=== PATIENT | male | born 1955 | race Caucasian/White ===

== ENCOUNTER 2016-09-19 22:11 | Inpatient (IN) ==
[2016-09-19] MEDS ORDERED: SODIUM CHLORIDE 0.9% 500 ML IV STA (22:55)
[2016-09-19] MEDS ORDERED: methylPREDNISolone SOD SUC 125 MG/2 ML VIAL IV STA (22:55)
[2016-09-19] MEDS ORDERED: ALBUTEROL 2.5 MG/3 ML NEB RESP TX STA (22:55)
[2016-09-19] MEDS ORDERED: cefTRIAXone 1,000 MG in SODIUM CHLORIDE 0.9% 100 ML IV STA (22:55)
[2016-09-19 23:06] LABS: Basophils % 0.1 % (0.0-0.8); Eosinophils # 0.1 10*3/uL (0.0-0.87); Eosinophils % 0.5 % (0.00-10.9); Hematocrit 37.5 VOL% (42.0-52.0); Hemoglobin 12.2 GM/DL (14.0-18.0); Immature Granulocytes % 0.7 %; Lymphocytes # 1.8 10*3/uL (1.4-4.0); Lymphocytes % 11.8 % (21.2-54.2); Mean Corpuscular HGB Conc 32.5 GM/DL (32-36); Mean Corpuscular Hemoglobin 29 PG (27-34); Mean Corpuscular Volume 89.9 FL (87-102); Mean Platelet Volume 11.6 FL (9.6-12.0); Monocytes # 0.8 10*3/uL (0.11-0.8); Monocytes % 5.3 % (1.7-12.7); NRBC # 0.02 10*3/uL; Neutrophils # 12.4 10*3/uL (1.4-7.4); Neutrophils % 81.6 % (38.7-73.9); Platelet Count 271 T/CUMM (130-400); Red Blood Count 4.17 MC/CUMM (3.8-5.5); Red Cell Distribution Width 15.4 % (9.3-17.3); White Blood Count 15.2 T/CUMM (4-12)
--- NOTE | 2016-09-19 23:06 | Emergency Department Note ---
Oneyda Hill Hilary, am scribing for, and in the presence of, Nicholas Palafox MD 22:55. Javy Hill Robert M, MD, personally performed the services described in this documentation, ascribed by Hannah Call in my presence, and it is both accurate and complete . Arrival - Arrival Chief Complaint: Shortness of Breath Stated Complaint: hard time breathing/ ED Nursing Triage Note: pt to triage via wheelchair with c/o not being able to breath. Hx of copd Mode of Arrival: Wheelchair Limitations: No Limitations Source: Patient, RN Notes Reviewed - History of Present Illness HPI Narrative: Pt is a 61 y/o white male presenting to the ED with c/o SOB which onset about a week and a half ago. Pt reports trouble breathing, coughing up green phlegm, highest 103 fever, pain when breathing and throat pain. No other complaints or problems stated in the ED. Onset (ago): week(s) Consistency: constant Severity: moderate Severity scale (1-10): 2 Allergies/Adverse Reactions: Allergies Allergy/AdvReac Type Severity Reaction Status Date / Time fentanyl Allergy Severe Seizure Verified 09/19/16 22:22 Home Medications: Home Medications Medication Instructions Recorded Confirmed Type Albuterol Sulfate [Proair HFA] 2 puff INH Q6H PRN 01/05/15 04/03/16 History Alendronate [Fosamax] 70 mg PO SA 01/05/15 04/03/16 History Amitriptyline HCl 25 mg PO BEDTIME 01/05/15 04/03/16 History Aspirin [Ecotrin] 81 mg PO BEDTIME 01/05/15 04/03/16 History Carbidopa/Levodopa 25-100 [Sinemet 1 tablet PO TID 01/05/15 04/03/16 History 25-100] Carvedilol [Coreg] 6.25 mg PO BID W/MEALS 01/05/15 04/03/16 History Citalopram [CeleXA] 40 mg PO BEDTIME 01/05/15 04/03/16 History Clobetasol Propionate [Clobetasol 1 applic TOP BID PRN 01/05/15 04/03/16 History 0.05% Oint] Meloxicam [Mobic] 7.5 mg PO DAILY 01/05/15 04/03/16 History Morphine Sulfate [Morphine Sulfate 15 mg PO BID 01/05/15 04/03/16 History ER] Nitroglycerin Sl Tab [Nitrostat] 0.4 mg SL Q5M PRN 01/05/15 04/03/16 History Oxycodone HCl/Acetaminophen 1 each PO QID PRN 01/05/15 04/03/16 History [Percocet 10-325 mg Tablet] Potassium Chloride Cap/Tab [K Dur] 10 meq PO DAILY 01/05/15 04/03/16 History Pregabalin [Lyrica] 150 mg PO BID 01/05/15 04/03/16 History Tiotropium [place] [Spiriva 2 puffs INH DAILY 01/05/15 04/03/16 History Respimat] Zolpidem Tartrate [Ambien] 10 mg PO BEDTIME PRN 01/05/15 04/03/16 History clonazePAM [Klonopin] 1 mg PO TID 01/05/15 04/03/16 History Dorzolamide HCl [Dorzolamide 2% 1 drop BOTH EYES BID 01/08/15 04/03/16 History Oph Soln] Latanoprost [Latanoprost 0.005 % 1 drop BOTH EYES BEDTIME 01/08/15 04/03/16 History Oph Soln] cycloSPORINE OPH EMUL [Restasis] 1 drop BOTH EYES Q12HR 01/08/15 04/03/16 History Cyclobenzaprine [Flexeril] 10 mg PO TID 05/21/15 04/03/16 History Topiramate 100 mg PO BID 07/13/15 04/03/16 History tiZANidine [Zanaflex] 4 mg PO TID 07/13/15 04/03/16 History Folic Acid Tab 1 mg PO BEDTIME 04/03/16 04/03/16 History Review of System - Review of System 12 point system: reviewed and no additional remarkable complaints except as stated - Review of System Constitutional: Present: fever Head/Ears/Nose/Throat: Present: sore throat Respiratory: Present: cough, respiratory distress (SOB), wheezing Cardiovascular: Present: dyspnea on exertion Medical,Surgical,& Family Hx - Medical History Cardio: History of: CHF, CAD, Hypertension, OR, Cardiovascular Problems (cabg 2009) Psychological: History of: Anxiety Disorders, Depression, Psychiatric Problems ( CONFUSION UNKNOWN ETIOLOGY) Neurology: History of: Migraine, Seizures (after overdose on fentanyl patches), Vertigo HEENT: History of: Eye Problem (2 eye surgeries - rt), HEENT Problems (HX DETACHED RETINA,LENS IMPLANT BOTH TO RIGHT EYE) Endocrine: History of: Dyslipidemia No history of: Thyroid Disorder Respiratory: History of: COPD, Pneumonia, Respiratory Problems (collasped rt lung from fall) Genitourinary: History of: Bladder Problem (stress incontinence) Gastrointestinal: History of: GERD, Hemorrhoids Musculoskeletal: History of: Back/Neck Problems (3 back surgeries and 2 neck surgeries), Degenerative Disk Disease, Musculoskeletal Problems - Surgical History Cardiac Surgeries: Sugical HX of: Cardiac Catheterization (most recent in 2012 with grafts patent), Cardiac Surgery (2009 with MARTINEZ to LAD and SVG to circumflex) HEENT Surgeries: Surgical HX of: Eye Surgery Patient denies: Tonsilectomy & Adenoidectomy Abdominal Surgeries: Surgical HX of: EGD Orthopedic Surgeries: Surgical HX of;: Implanted Devices (RODS PLACED IN BACK), Orthopedic Surgery (BACK SURG) - Family History Family History: Reports;: Family Cancer (UNCLE), Family Diabetes (AUNT), Family Heart Disease (mother and father), Family Hypertension Denies;: Family Anesthesia Reaction, Family Psychiatric Problems, Family Stroke - Social History Smoking Status: Former smoker Frequency of Alcohol Use: None Type of Drug Use: None Exam Vital Signs: Vital Signs Temperature 97.5 F L 09/19/16 22:14 Pulse Rate 69 09/19/16 23:28 Respiratory Rate 20 09/19/16 23:28 Blood Pressure 146/101 09/19/16 22:48 O2 Sat by Pulse Oximetry 99 09/19/16 23:28 - General General appearance: alert, in no apparent distress - Head Head exam: Present: atraumatic, normocephalic - Eye Eye exam: Present: normal appearance, PERRL, EOMI - ENT ENT exam: Present: mucous membranes moist, TM's normal bilaterally. Absent: mucous membranes dry - Neck Neck exam: Present: full ROM, trachea midline. Absent: tenderness - Chest Chest inspection: Present: symmetric chest wall rise, tenderness (chest wall tenderness anteriorly) - Respiratory Respiratory exam: Present: normal lung sounds bilaterally. Absent: respiratory distress - Cardiovascular Cardiovascular exam: Present: regular rate, normal rhythm, normal heart sounds. Absent: murmur, rubs, gallop - Abdominal Exam Abdominal exam: Present: soft, normal bowel sounds. Absent: distention, tenderness - Extremities Exam Extremities exam: Present: full ROM. Absent: tenderness - Back Exam Back exam: Present: full ROM. Absent: tenderness - Neurological Exam Neurological exam: Present: alert, oriented X3, CN II-XII intact - Psychiatric Psychiatric exam: Present: normal affect, normal mood - Skin Skin exam: Present: warm, dry, intact, normal color. Absent: rash Course - Consultations Consultation #1: Dr. Eleonora Saunders will admit the patient to Dr. Paul. Time: 23:57 Results - Labs CBC & BMP: 09/19/16 22:46 09/19/16 22:46 Lab Results: I have reviewed the patients labs Labs: Lab Results WBC 15.2 T/CUMM (4-12) H 09/19/16 22:46 RBC 4.17 MC/CUMM (3.8-5.5) 09/19/16 22:46 Hgb 12.2 GM/DL (14.0-18.0) L 09/19/16 22:46 Hct 37.5 VOL% (42.0-52.0) L 09/19/16 22:46 MCV 89.9 FL (87-102) 09/19/16 22:46 MCH 29 PG (27-34) 09/19/16 22:46 MCHC 32.5 GM/DL (32-36) 09/19/16 22:46 RDW 15.4 % (9.3-17.3) 09/19/16 22:46 Plt Count 271 T/CUMM (130-400) 09/19/16 22:46 MPV 11.6 FL (9.6-12.0) 09/19/16 22:46 Neut % (Auto) 81.6 % (38.7-73.9) H 09/19/16 22:46 Lymph % (Auto) 11.8 % (21.2-54.2) L 09/19/16 22:46 [place] % (Auto) 5.3 % (1.7-12.7) 09/19/16 22:46 Eos % (Auto) 0.5 % (0.00-10.9) 09/19/16 22:46 Baso % (Auto) 0.1 % (0.0-0.8) 09/19/16 22:46 Neut # (Auto) 12.4 10*3/uL (1.4-7.4) H 09/19/16 22:46 Lymph # (Auto) 1.8 10*3/uL (1.4-4.0) 09/19/16 22:46 [place] # (Auto) 0.8 10*3/uL (0.11-0.8) 09/19/16 22:46 Eos # (Auto) 0.1 10*3/uL (0.0-0.87) 09/19/16 22:46 Baso # (Auto) 0.0 10*3/uL (0.0-0.2) 09/19/16 22:46 Total Counted 100 09/19/16 22:46 Immature Gran % 0.7 % 09/19/16 22:46 Nucleated RBC % 0.1 /100WBC 09/19/16 22:46 Immature Gran # 0.10 # 09/19/16 22:46 Segmented Neutrophils 87 % (50-85) H 09/19/16 22:46 Band Neutrophils 3 % (0-10) 09/19/16 22:46 Lymphocytes 8 % (20-55) L 09/19/16 22:46 Monocytes 2 % (2-15) 09/19/16 22:46 Nucleated RBCs # 0.02 10*3/uL 09/19/16 22:46 Platelet Estimate Adequate 09/19/16 22:46 Polychromasia Slight 09/19/16 22:46 Morphology Comment 09/19/16 22:46 INR 1.1 09/19/16 22:46 PT Patient/Control Mix 11.2 SECS 09/19/16 22:46 Sodium 136 MMOL/L (136-145) 09/19/16 22:46 Potassium 3.6 MMOL/L (3.5-5.1) 09/19/16 22:46 Chloride 100 MMOL/L (98-107) 09/19/16 22:46 Carbon Dioxide 24 MMOL/L (21-32) 09/19/16 22:46 Anion Gap 15.6 MMOL/L (5.0-15.0) H 09/19/16 22:46 BUN 36 MG/DL (7-18) H 09/19/16 22:46 Creatinine 2.20 MG/DL (0.70-1.30) H 09/19/16 22:46 GFR Calculation 40 ML/MIN 09/19/16 22:46 BUN/Creatinine Ratio 16.00 RATIO (6.00-20.00) 09/19/16 22:46 Glucose 82 MG/DL (74-106) 09/19/16 22:46 Calculated Osmolality 278.0 MOS/KG (273-304) 09/19/16 22:46 Calcium 8.3 MG/DL (8.5-10.1) L 09/19/16 22:46 Total Bilirubin 0.40 MG/DL (0.2-1.0) 09/19/16 22:46 AST 16 U/L (0-37) 09/19/16 22:46 ALT < 6 U/L (16-61) L 09/19/16 22:46 Alkaline Phosphatase 83 U/L (45-117) 09/19/16 22:46 Total Protein 7.1 G/DL (6.4-8.3) 09/19/16 22:46 Albumin 2.7 G/DL (3.4-5.0) L 09/19/16 22:46 Globulin 4.4 G/DL (2.3-3.5) H 09/19/16 22:46 Albumin/Globulin Ratio 0.6 RATIO (1.1-2.2) L 09/19/16 22:46 - Diagnostic Findings Procedure: Chest x-ray: image reviewed by me (Right upper lobe reticular nodular appearance suggesting pneumonia with trace amount of fluid in the minor fissure. Trace amount of lingular airspace disease not excluded) Disposition Clinical Impression: Right upper lobe pneumonia, COPD (chronic obstructive pulmonary disease), Hypertension Case discussed with: patient, patient's family Disposition: Still a Patient Condition: Stable Time of Disposition: 23:57
[2016-09-19 23:15] LABS: INR 1.1; PT Patient Result 11.2 SECS
[2016-09-19] MEDS ORDERED: cefTRIAXone 1,000 MG VIAL ONE (23:22)
[2016-09-19] MEDS ORDERED: methylPREDNISolone SOD SUC 125 MG/2 ML VIAL ONE (23:22)
[2016-09-19 23:27] LABS: Alanine Aminotransferase < 6 U/L (16-61); Albumin 2.7 G/DL (3.4-5.0); Alkaline Phosphatase 83 U/L (45-117); Aspartate Amino Transferase 16 U/L (0-37); Blood Urea Nitrogen 36 MG/DL (7-18); Calcium 8.3 MG/DL (8.5-10.1); Glucose 82 MG/DL (74-106); Potassium 3.6 MMOL/L (3.5-5.1); Sodium 136 MMOL/L (136-145); Total Protein 7.1 G/DL (6.4-8.3)
[2016-09-19 23:42] LABS: Band Neutrophils 3 % (0-10); Lymphocytes 8 % (20-55); Segmented Neutrophils 87 % (50-85); Total Cells Counted 100
[2016-09-19 23:43] LABS: Platelet Estimate Adequate
[2016-09-19 23:45] LABS: Polychromasia Slight
[2016-09-19] MEDS ORDERED: ONDANSETRON 4 MG/2 ML VIAL IV PRN (23:58)
[2016-09-19] MEDS ORDERED: ACETAMINOPHEN 325 MG TABLET PO PRN (23:58)
[2016-09-19] MEDS ORDERED: traMADol 50 MG TABLET PO PRN (23:58)
[2016-09-20] MEDS ORDERED: ALBUTEROL/IPRATROPIUM 3 ML NEB RESP TX PRN (00:01)
[2016-09-20] MEDS ORDERED: SODIUM CHLORIDE 0.9% 500 ML IV STA (00:20)
[2016-09-20] MEDS: AZITHROMYCIN INJ 500 MG in SODIUM CHLORIDE 0.9% 250 ML IV SCH (04:52)
--- NOTE | 2016-09-20 06:35 | XRay Report ---
Portable chest Date: 09/19/2016 Clinical history: Shortness of breath Comparison: 04/06/2016 Technique: Portable AP sitting chest Findings: The heart is larger in size with prior median sternotomy. Pulmonary vasculature/steven are more prominent with progressive diffuse parenchymal findings. The findings are most pronounced in the right upper to midlung zone with ill-defined densities. Possible acute fractures of the right seventh and eighth ribs laterally. Underlying bullous emphysema with no definite pneumothorax. Degenerative changes with prior anterior cervical fusion. Impression: Prior median sternotomy with progressive cardiomegaly and parenchymal pathology which may be related pulmonary edema/infiltration. However there are ill-defined densities in the right upper midlung zone with adjacent possible acute fractures of the right seventh and eighth ribs laterally. Underlying bullous emphysema with more prominent pulmonary vasculature/steven. Follow-up chest x-ray is recommended to document clearing and exclude additional underlying pathology/mass. PROCEDURE INTERPRETED AT [facility] DEPARTMENT OF RADIOLOGY Final Report Signed by: Dr. Betsey Oleary
[2016-09-20] MEDS ORDERED: NITROGLYCERIN SL 0.4 MG TABLET SL PRN (08:20)
[2016-09-20] MEDS ORDERED: CYCLOBENZAPRINE 10 MG TABLET PO PRN (08:20)
[2016-09-20] MEDS ORDERED: ALBUTEROL/IPRATROPIUM 3 ML NEB RESP TX SCH (09:00)
[2016-09-20] MEDS ORDERED: IPRATROPIUM 500 MCG/2.5 ML NEB RESP TX SCH (09:00)
[2016-09-20] MEDS: ENOXAPARIN 40 MG/0.4 ML SYRINGE SUBCUT SCH (09:09)
[2016-09-20] MEDS: cycloSPORINE OPH EMUL 1 VIAL BOTH EYES SCH ×2 (09:10→21:10)
[2016-09-20] MEDS: POTASSIUM CHLORIDE 10 MEQ TABLET PO SCH (09:10)
[2016-09-20] MEDS: TOPIRAMATE 100 MG TABLET PO SCH ×2 (09:10→21:09)
[2016-09-20] MEDS: DOCUSATE SODIUM 100 MG CAPSULE PO SCH ×2 (09:10→21:09)
[2016-09-20] MEDS: PRAVASTATIN 40 MG TABLET PO SCH (09:10)
[2016-09-20] MEDS: CARBIDOPA/LEVODOPA 25-100 MG TABLET PO SCH ×4 (09:10→21:09)
[2016-09-20] MEDS: MELOXICAM 7.5 MG TABLET PO SCH (09:10)
[2016-09-20] MEDS: PANTOPRAZOLE 40 MG TABLET PO SCH (09:10)
[2016-09-20] MEDS: PREGABALIN 75 MG CAPSULE PO SCH ×2 (09:10→21:09)
[2016-09-20] MEDS: DORZOLAMIDE 2% OPH SOLN 10 ML BOTTLE BOTH EYES SCH ×2 (09:11→21:18)
[2016-09-20] MEDS: MORPHINE ER 15 MG TABLET PO SCH (09:12)
--- NOTE | 2016-09-20 09:27 | Internal Med History&Physical ---
Assessment and Plan (1) Right upper lobe pneumonia Status: Acute Assessment and plan: 61-year-old male admitted to acute care * Right upper lobe pneumonia. Patient was running high-grade fever at home. He is coughing up greenish phlegm. He has been started on broad-spectrum antibiotics. * Acute exacerbation of COPD. He will be continued on duo nebs * Possible rib fractures on x-ray. Patient does not give a history of fall or trauma. Will repeat x-rays in the morning. * Hypertension. Blood pressure is on the lower side. Will hold his blood pressure medications for now. * Increased BUN/creatinine. Patient appears to be dry. He does have a history of CHF. Will give him IV fluids. Will check daily weights * Coronary artery disease. Stable and asymptomatic * Chronic pain syndrome. Will hold morphine for now. * Depression. Continue current treatment * Discussed with patient and his Current Visit: Yes (2) Acute exacerbation of chronic obstructive pulmonary disease (COPD) Status: Acute Current Visit: No (3) Atherosclerotic cardiovascular disease Status: Acute Current Visit: No (4) Chronic pain syndrome Status: Acute Current Visit: No (5) Depression Status: Acute Current Visit: No (6) Essential hypertension Status: Acute Current Visit: No History of Present Illness Chief complaint: Shortness of breath and fever History of present illness: Mr. Miramontes is a 61 year old male with history of multiple medical problems including coronary artery disease, hypertension, chronic pain syndrome, COPD, recurrent pneumonia, depression who presented to the emergency room with shortness of breath starting about a week ago. He had trouble breathing and was coughing up green phlegm. His temperature went up to 103. He was having throat pain. He was using his nebulizer treatments. He was progressively getting worse and weak. In the emergency room he was found to have pneumonia and was started on antibiotics and admitted. In the past year patient has had recurrent episodes of pneumonia. He lives at home with his . He is a former smoker. He denies any chest pain. He denies any nausea vomiting or diarrhea. Home Medications Medication Instructions Recorded Confirmed Type Albuterol Sulfate [Proair HFA] 2 puff INH Q6H PRN 01/05/15 09/20/16 History Alendronate [Fosamax] 70 mg PO SA 01/05/15 09/20/16 History Amitriptyline HCl 25 mg PO BEDTIME 01/05/15 09/20/16 History Aspirin [Ecotrin] 81 mg PO BEDTIME 01/05/15 09/20/16 History Carbidopa/Levodopa 25-100 [Sinemet 1 tablet PO TID 01/05/15 09/20/16 History 25-100] Carvedilol [Coreg] 6.25 mg PO BID W/MEALS 01/05/15 09/20/16 History Citalopram [CeleXA] 40 mg PO BEDTIME 01/05/15 09/20/16 History Meloxicam [Mobic] 7.5 mg PO DAILY 01/05/15 09/20/16 History Morphine Sulfate [Morphine Sulfate 15 mg PO BID 01/05/15 09/20/16 History ER] Nitroglycerin Sl Tab [Nitrostat] 0.4 mg SL Q5M PRN 01/05/15 09/20/16 History Oxycodone HCl/Acetaminophen 1 each PO QID PRN 01/05/15 09/20/16 History [Percocet 10-325 mg Tablet] Potassium Chloride Cap/Tab [K Dur] 10 meq PO DAILY 01/05/15 09/20/16 History Pregabalin [Lyrica] 150 mg PO BID 01/05/15 09/20/16 History Tiotropium [place] [Spiriva 2 puffs INH DAILY 01/05/15 09/20/16 History Respimat] Zolpidem Tartrate [Ambien] 10 mg PO BEDTIME PRN 01/05/15 09/20/16 History Dorzolamide HCl [Dorzolamide 2% 1 drop BOTH EYES BID 01/08/15 09/20/16 History Oph Soln] Latanoprost [Latanoprost 0.005 % 1 drop BOTH EYES BEDTIME 01/08/15 09/20/16 History Oph Soln] cycloSPORINE OPH EMUL [Restasis] 1 drop BOTH EYES Q12HR 01/08/15 09/20/16 History Cyclobenzaprine [Flexeril] 10 mg PO TID 05/21/15 09/20/16 History Topiramate 100 mg PO BID 07/13/15 09/20/16 History tiZANidine [Zanaflex] 4 mg PO TID 07/13/15 09/20/16 History Folic Acid Tab 1 mg PO BEDTIME 04/03/16 09/20/16 History Pravastatin [Pravachol] 40 mg PO DAILY 09/20/16 09/20/16 History Allergies Allergy/AdvReac Type Severity Reaction Status Date / Time fentanyl Allergy Severe Seizure Verified 09/19/16 22:22 Medical,Surgical,& Family Hx - Medical History Cardio: History of: CHF, CAD, Hypertension, [place], Cardiovascular Problems (cabg 2009) Psychological: History of: Anxiety Disorders, Depression, Psychiatric Problems ( CONFUSION UNKNOWN ETIOLOGY) Neurology: History of: Migraine, Seizures (after overdose on fentanyl patches), Vertigo HEENT: History of: Eye Problem (2 eye surgeries - rt), HEENT Problems (HX DETACHED RETINA,LENS IMPLANT BOTH TO RIGHT EYE) Endocrine: History of: Dyslipidemia No history of: Thyroid Disorder Respiratory: History of: COPD, Pneumonia, Respiratory Problems (collasped rt lung from fall) Genitourinary: History of: Bladder Problem (stress incontinence) Gastrointestinal: History of: GERD, Hemorrhoids Musculoskeletal: History of: Back/Neck Problems (3 back surgeries and 2 neck surgeries), Degenerative Disk Disease, Musculoskeletal Problems - Surgical History Cardiac Surgeries: Sugical HX of: Cardiac Catheterization (most recent in 2012 with grafts patent), Cardiac Surgery (2009 with MARTINEZ to LAD and SVG to circumflex) Neurologic Surgeries: Patient denies: Neurologic Surgery HEENT Surgeries: Surgical HX of: Eye Surgery Patient denies: Tonsilectomy & Adenoidectomy Abdominal Surgeries: Surgical HX of: Abdominal Surgery, EGD Orthopedic Surgeries: Surgical HX of;: Implanted Devices (RODS PLACED IN BACK), Orthopedic Surgery (BACK SURG) - Family History Family History: Reports;: Family Cancer (UNCLE), Family Diabetes (AUNT), Family Heart Disease (mother and father), Family Hypertension Denies;: Family Anesthesia Reaction, Family Psychiatric Problems, Family Stroke - Social History Smoking Status: Former smoker Frequency of Alcohol Use: None Type of Drug Use: None Marital Status: Lives With:: Spouse Functional capacity: uses cane/walker 12 point system: reviewed and no additional remarkable complaints except as stated (As mentioned in HPI) Exam - Constitutional Vitals: Period Temp Pulse Resp BP Sys/Yanez Pulse Ox Last 24 Hr 97.2 F-97.7 F 57-71 16-22 80-146/49-101 89-99 Exam: Examination: GENERAL: NAD. HEENT: PERRLA. EOMI. Mucous membranes are dry NECK: Neck is supple. No JVD. No carotid bruit. No thyromegaly. CVS: Regular rate and rhythm. S1 and S2 are normal. RESPIRATORY: Decreased air entry bilaterally. Few bronchial breath sounds at right upper lung. Bilateral rhonchi. No chest wall tenderness ABDOMEN: Soft and nontender. Bowel sounds are present. No hepatosplenomegaly. EXT: No edema. Peripheral pulses are present. MEMS ENGINEER: Patient is awake, alert and oriented to time place and person. Cranial nerves II through XII are grossly intact. Motor strength is 5 over 5 both upper and lower extremities. SKIN: Warm and dry. MSK: No obvious deformity. Results - Labs CBC & BMP: 09/19/16 22:46 09/19/16 22:46 Lab Results: I have reviewed the past 24 hour labs
[2016-09-20] MEDS: SODIUM CHLORIDE 0.9% 1,000 ML IV SCH ×2 (10:01→18:14)
[2016-09-20] MEDS: ALBUTEROL/IPRATROPIUM 3 ML NEB RESP TX SCH ×2 (12:48→19:40)
[2016-09-20] MEDS: CARVEDILOL 6.25 MG TABLET PO SCH (17:31)
[2016-09-20] MEDS: LATANOPROST 0.005% OPH SOLN 2.5 ML BOTTLE BOTH EYES SCH (21:09)
[2016-09-20] MEDS: cefTRIAXone 1,000 MG in SODIUM CHLORIDE 0.9% 100 ML IV SCH (21:09)
[2016-09-20] MEDS: CITALOPRAM 40 MG TABLET PO SCH (21:09)
[2016-09-20] MEDS: AMITRIPTYLINE 25 MG TABLET PO SCH (21:09)
[2016-09-20] MEDS: FOLIC ACID 1 MG TABLET PO SCH (21:09)
[2016-09-20] MEDS: ZALEPLON 5 MG CAPSULE PO PRN (21:22)
[2016-09-20] MEDS: oxyCODONE/ACETAMINOPHEN 5-325 MG TABLET PO PRN (21:24)
[2016-09-20] MEDS: ASPIRIN EC 81 MG TABLET PO SCH (21:26)
[2016-09-21] MEDS: AZITHROMYCIN INJ 500 MG in SODIUM CHLORIDE 0.9% 250 ML IV SCH (02:55)
[2016-09-21] MEDS: SODIUM CHLORIDE 0.9% 1,000 ML IV SCH ×2 (02:56→08:56)
[2016-09-21 05:47] LABS: Hematocrit 32.3 VOL% (42.0-52.0); Hemoglobin 10.5 GM/DL (14.0-18.0); Immature Granulocytes % 0.9 %; Immature Granulocytes Absolute 0.08 #; Lymphocytes # 1.3 10*3/uL (1.4-4.0); Lymphocytes % 15.2 % (21.2-54.2); Mean Corpuscular HGB Conc 32.5 GM/DL (32-36); Mean Corpuscular Hemoglobin 29 PG (27-34); Mean Corpuscular Volume 87.5 FL (87-102); Monocytes # 0.6 10*3/uL (0.11-0.8); Monocytes % 6.8 % (1.7-12.7); NRBC # 0.02 10*3/uL; Neutrophils # 6.8 10*3/uL (1.4-7.4); Neutrophils % 77.1 % (38.7-73.9); Platelet Count 298 T/CUMM (130-400); Red Blood Count 3.69 MC/CUMM (3.8-5.5); Red Cell Distribution Width 15.4 % (9.3-17.3); White Blood Count 8.8 T/CUMM (4-12)
[2016-09-21 06:24] LABS: Calcium 8.1 MG/DL (8.5-10.1); Osmolality,Calculated 294.7 MOS/KG (273-304); Potassium 4.3 MMOL/L (3.5-5.1)
[2016-09-21] MEDS: ALBUTEROL/IPRATROPIUM 3 ML NEB RESP TX SCH ×3 (07:09→19:47)
--- NOTE | 2016-09-21 08:09 | XRay Report ---
2 view chest. Indication: Pneumonia. Comparison: September 19, 2016. The heart is enlarged. Post median sternotomy. Postsurgical changes in the cervical and lumbar spine. The pulmonary vasculature is mildly prominent. The interstitial lung markings are diffusely prominent. There is more focal irregular thickened interstitial prominence in the right upper and mid lung [place], particularly laterally. There may be some cystic carpal exchange in the right upper lobe. There is pleural thickening. No pneumothorax. No pleural effusion. Impression: Cardiomegaly, and possible changes of decompensation. Focal acute infiltrate in the right upper lung field, which needs to be followed until complete clearing. No definite change compared to the recent previous. PROCEDURE INTERPRETED AT [facility] DEPARTMENT OF RADIOLOGY Final Report Signed by: Dr. Marita Gomez
--- NOTE | 2016-09-21 08:11 | XRay Report ---
Right rib detail 3 views. Indication: Possible fracture seen on previous x-ray. No previous rib detail study. Post median sternotomy. Postsurgical changes in the cervical spine and lumbar spine. Extensive parenchymal pathology of both lungs. There is a subacute displaced rib fracture of the right lateral seventh rib, the right lateral eighth rib, and the right lateral ninth rib. Note that there are only 11 ribs on each side. Impression: Multiple subacute to chronic rib fractures on the right. PROCEDURE INTERPRETED AT [facility] DEPARTMENT OF RADIOLOGY Final Report Signed by: Dr. Marita Gomez
--- NOTE | 2016-09-21 08:56 | Internal Med Progress Note ---
Assessment and Plan (1) Right upper lobe pneumonia Status: Acute Assessment and plan: 61-year-old male admitted to acute care * Right upper lobe pneumonia. Continue IV antibiotics. Repeat chest x-ray noted * Acute exacerbation of COPD. He will be continued on duo nebs * Possible rib fractures on x-ray. X-rays showed subacute fracture. According to his he had a fall few days ago * Hypertension. Blood pressure is better controlled. Will restart medications * Increased BUN/creatinine. His renal function is much better. Will decrease IV fluids and DC after this by * Coronary artery disease. Stable and asymptomatic * Chronic pain syndrome. Will restart his morphine * Depression. Continue current treatment * Discussed with patient and his Current Visit: Yes (2) Acute exacerbation of chronic obstructive pulmonary disease (COPD) Status: Acute Current Visit: No (3) Atherosclerotic cardiovascular disease Status: Acute Current Visit: No (4) Chronic pain syndrome Status: Acute Current Visit: No (5) Depression Status: Acute Current Visit: No (6) Essential hypertension Status: Acute Current Visit: No Internal Medicine - PN: Subj Interval history: He is feeling short of breath at times. He is hurting quite a lot in his feet. It is a burning type pain. Exam (Progress Note) - Constitutional Vitals: Period Temp Pulse Resp BP Sys/Yanez Pulse Ox Last 24 Hr 97.0 F-98.2 F 73-81 16-24 104-161/53-85 96-100 Exam: Examination: GENERAL: NAD. HEENT: PERRLA. EOMI. NECK: Neck is supple. CVS: Regular rate and rhythm. S1 and S2 are normal. RESPIRATORY: Better air entry. Still with bilateral scattered rhonchi ABDOMEN: Soft and nontender. EXT: No edema. Peripheral pulses are present. SKIN: Warm and dry. MSK: No obvious deformity. Results - Labs CBC & BMP: 09/21/16 05:27 09/21/16 05:27 Lab Results: I have reviewed the past 24 hour labs
[2016-09-21 09:43] LABS: Folate > 24.0 NG/ML (5.4-24.0); Vitamin B12 544 PG/ML (211-911)
[2016-09-21] MEDS: ENOXAPARIN 40 MG/0.4 ML SYRINGE SUBCUT SCH (10:10)
[2016-09-21] MEDS: NYSTATIN 500,000 UNIT/5 ML UDCUP SWISH/SWAL SCH ×4 (10:10→21:11)
[2016-09-21] MEDS: MORPHINE ER 15 MG TABLET PO SCH ×2 (10:10→21:11)
[2016-09-21] MEDS: TOPIRAMATE 100 MG TABLET PO SCH ×2 (10:11→21:11)
[2016-09-21] MEDS: CARVEDILOL 6.25 MG TABLET PO SCH ×2 (10:11→16:42)
[2016-09-21] MEDS: PRAVASTATIN 40 MG TABLET PO SCH (10:11)
[2016-09-21] MEDS: CARBIDOPA/LEVODOPA 25-100 MG TABLET PO SCH ×3 (10:11→21:11)
[2016-09-21] MEDS: PANTOPRAZOLE 40 MG TABLET PO SCH (10:11)
[2016-09-21] MEDS: POTASSIUM CHLORIDE 10 MEQ TABLET PO SCH (10:11)
[2016-09-21] MEDS: PREGABALIN 75 MG CAPSULE PO SCH ×2 (10:11→21:10)
[2016-09-21] MEDS: MELOXICAM 7.5 MG TABLET PO SCH (10:11)
[2016-09-21] MEDS: cycloSPORINE OPH EMUL 1 VIAL BOTH EYES SCH ×2 (10:12→21:12)
[2016-09-21] MEDS: DOCUSATE SODIUM 100 MG CAPSULE PO SCH ×2 (10:12→21:11)
[2016-09-21] MEDS: DORZOLAMIDE 2% OPH SOLN 10 ML BOTTLE BOTH EYES SCH ×2 (10:12→21:20)
[2016-09-21] MEDS: ZALEPLON 5 MG CAPSULE PO PRN (21:10)
[2016-09-21] MEDS: ASPIRIN EC 81 MG TABLET PO SCH (21:10)
[2016-09-21] MEDS: AMITRIPTYLINE 25 MG TABLET PO SCH (21:10)
[2016-09-21] MEDS: CITALOPRAM 40 MG TABLET PO SCH (21:11)
[2016-09-21] MEDS: FOLIC ACID 1 MG TABLET PO SCH (21:11)
[2016-09-21] MEDS: cefTRIAXone 1,000 MG in SODIUM CHLORIDE 0.9% 100 ML IV SCH (21:11)
[2016-09-21] MEDS: LATANOPROST 0.005% OPH SOLN 2.5 ML BOTTLE BOTH EYES SCH (21:12)
[2016-09-22 05:22] LABS: Basophils % 0.1 % (0.0-0.8); Eosinophils # 0.1 10*3/uL (0.0-0.87); Eosinophils % 0.7 % (0.00-10.9); Hematocrit 34.7 VOL% (42.0-52.0); Immature Granulocytes % 1.8 %; Immature Granulocytes Absolute 0.13 #; Lymphocytes # 2.3 10*3/uL (1.4-4.0); Lymphocytes % 33.3 % (21.2-54.2); Mean Corpuscular HGB Conc 31.7 GM/DL (32-36); Mean Corpuscular Hemoglobin 28 PG (27-34); Mean Platelet Volume 12.4 FL (9.6-12.0); Monocytes # 0.7 10*3/uL (0.11-0.8); Monocytes % 10.2 % (1.7-12.7); NRBC # 0.02 10*3/uL; Neutrophils # 3.8 10*3/uL (1.4-7.4); Neutrophils % 53.9 % (38.7-73.9); Platelet Count 310 T/CUMM (130-400); Red Cell Distribution Width 15.8 % (9.3-17.3)
[2016-09-22 05:48] LABS: Calcium 7.9 MG/DL (8.5-10.1); Osmolality,Calculated 291.4 MOS/KG (273-304); Potassium 3.8 MMOL/L (3.5-5.1)
[2016-09-22] MEDS: ALBUTEROL/IPRATROPIUM 3 ML NEB RESP TX SCH ×3 (06:53→19:06)
[2016-09-22] MEDS: DOCUSATE SODIUM 100 MG CAPSULE PO SCH ×2 (09:03→21:14)
[2016-09-22] MEDS: MORPHINE ER 15 MG TABLET PO SCH ×2 (09:03→21:14)
[2016-09-22] MEDS: AZITHROMYCIN 250 MG TABLET PO SCH (09:03)
[2016-09-22] MEDS: PREGABALIN 75 MG CAPSULE PO SCH ×2 (09:03→21:14)
[2016-09-22] MEDS: PANTOPRAZOLE 40 MG TABLET PO SCH (09:03)
[2016-09-22] MEDS: ENOXAPARIN 40 MG/0.4 ML SYRINGE SUBCUT SCH (09:03)
[2016-09-22] MEDS: NYSTATIN 500,000 UNIT/5 ML UDCUP SWISH/SWAL SCH ×4 (09:03→21:15)
[2016-09-22] MEDS: POTASSIUM CHLORIDE 10 MEQ TABLET PO SCH (09:04)
[2016-09-22] MEDS: TOPIRAMATE 100 MG TABLET PO SCH ×2 (09:04→21:15)
[2016-09-22] MEDS: CARBIDOPA/LEVODOPA 25-100 MG TABLET PO SCH ×3 (09:04→21:14)
[2016-09-22] MEDS: MELOXICAM 7.5 MG TABLET PO SCH (09:04)
[2016-09-22] MEDS: CARVEDILOL 6.25 MG TABLET PO SCH ×2 (09:04→17:11)
[2016-09-22] MEDS: PRAVASTATIN 40 MG TABLET PO SCH (09:04)
[2016-09-22] MEDS: cycloSPORINE OPH EMUL 1 VIAL BOTH EYES SCH ×2 (09:05→21:17)
[2016-09-22] MEDS: DORZOLAMIDE 2% OPH SOLN 10 ML BOTTLE BOTH EYES SCH ×2 (09:06→21:18)
--- NOTE | 2016-09-22 09:32 | Internal Med Progress Note ---
Assessment and Plan (1) Right upper lobe pneumonia Status: Acute Assessment and plan: 61-year-old male admitted to acute care * Right upper lobe pneumonia. Improving. Continue antibiotic * Acute exacerbation of COPD. He will be continued on duo nebs. Will check room air oxygen * Fractured ribs. Pain control is better * Hypertension. Continue treatment * Renal function is better after rehydration. It is back to normal. It was probably related to acute dehydration * Coronary artery disease. Stable and asymptomatic * Chronic pain syndrome. Better controlled * Depression. Continue current treatment * Discussed with patient and his Current Visit: Yes (2) Acute exacerbation of chronic obstructive pulmonary disease (COPD) Status: Acute Current Visit: No (3) Atherosclerotic cardiovascular disease Status: Acute Current Visit: No (4) Chronic pain syndrome Status: Acute Current Visit: No (5) Depression Status: Acute Current Visit: No (6) Essential hypertension Status: Acute Current Visit: No Internal Medicine - PN: Subj Interval history: He is feeling better. He is complaining of some wheezing at times. He was walking last night and did well Exam (Progress Note) - Constitutional Vitals: Period Temp Pulse Resp BP Sys/Yanez Pulse Ox Last 24 Hr 97.1 F-97.8 F 69-95 18-20 141-158/78-86 87-99 Exam: Examination: GENERAL: NAD. NECK: Neck is supple. CVS: Regular rate and rhythm. S1 and S2 are normal. RESPIRATORY: Better air entry. Still with some rhonchi ABDOMEN: Soft and nontender. EXT: No edema. Peripheral pulses are present. SKIN: Warm and dry. MSK: No obvious deformity. Results - Labs CBC & BMP: 09/22/16 04:12 09/22/16 04:12 Lab Results: I have reviewed the past 24 hour labs
[2016-09-22] MEDS: oxyCODONE/ACETAMINOPHEN 5-325 MG TABLET PO PRN ×2 (14:03→19:35)
[2016-09-22] MEDS: ZALEPLON 5 MG CAPSULE PO PRN (21:13)
[2016-09-22] MEDS: CITALOPRAM 40 MG TABLET PO SCH (21:13)
[2016-09-22] MEDS: ASPIRIN EC 81 MG TABLET PO SCH (21:15)
[2016-09-22] MEDS: FOLIC ACID 1 MG TABLET PO SCH (21:15)
[2016-09-22] MEDS: AMITRIPTYLINE 25 MG TABLET PO SCH (21:15)
[2016-09-22] MEDS: cefTRIAXone 1,000 MG in SODIUM CHLORIDE 0.9% 100 ML IV SCH (21:18)
[2016-09-22] MEDS: LATANOPROST 0.005% OPH SOLN 2.5 ML BOTTLE BOTH EYES SCH (21:21)
[2016-09-23 06:16] LABS: Calcium 8.6 MG/DL (8.5-10.1); Osmolality,Calculated 283.8 MOS/KG (273-304); Potassium 3.8 MMOL/L (3.5-5.1)
[2016-09-23] MEDS: oxyCODONE/ACETAMINOPHEN 5-325 MG TABLET PO PRN (06:55)
[2016-09-23] MEDS: ALBUTEROL/IPRATROPIUM 3 ML NEB RESP TX SCH (07:19)
--- NOTE | 2016-09-23 07:33 | XRay Report ---
Exam: XR chest 2V Date: 09/23/2016 4:00 AM Indication: Follow-up pneumonia Comparison: 09/21/2016, previous CT chest 04/08/2016 Technical: AP portable Findings: Cardiomegaly present previous sternotomy. Previous cervical fusion and previous vertebral day care home mother and screws and plates the thoracolumbar junction. Underlying scarring and atelectatic change present and blebs or bulla changes in the right upper chest with interstitial thickening along the periphery and pleural thickening. Small area of nodularity suspected in the right lateral chest The left lung reveals no obvious infiltrate. Impression: 1. Slight increasing density over the right lateral chest with underlying pleural thickening and blebs bulla changes or cavitary changes in the right upper chest and interstitial thickening the right midlung zone. Small nodule was present on the previous CT chest in the periphery of the right upper lung that measured [address] may be beneficial 2. Cardiomegaly and previous sternotomy 3. Previous cervical spine and thoracolumbar spine surgical changes. PROCEDURE INTERPRETED AT [facility] DEPARTMENT OF RADIOLOGY Final Report Signed by: Dr. Franc Song
[2016-09-23 08:14] VITALS: BP 147/89
[2016-09-23] MEDS: PREGABALIN 75 MG CAPSULE PO SCH (09:06)
[2016-09-23] MEDS: MELOXICAM 7.5 MG TABLET PO SCH (09:06)
[2016-09-23] MEDS: NYSTATIN 500,000 UNIT/5 ML UDCUP SWISH/SWAL SCH (09:06)
[2016-09-23] MEDS: AZITHROMYCIN 250 MG TABLET PO SCH (09:06)
[2016-09-23] MEDS: CARBIDOPA/LEVODOPA 25-100 MG TABLET PO SCH (09:07)
[2016-09-23] MEDS: DOCUSATE SODIUM 100 MG CAPSULE PO SCH (09:07)
[2016-09-23] MEDS: CARVEDILOL 6.25 MG TABLET PO SCH (09:07)
[2016-09-23] MEDS: PRAVASTATIN 40 MG TABLET PO SCH (09:07)
[2016-09-23] MEDS: cycloSPORINE OPH EMUL 1 VIAL BOTH EYES SCH (09:07)
[2016-09-23] MEDS: PANTOPRAZOLE 40 MG TABLET PO SCH (09:07)
[2016-09-23] MEDS: POTASSIUM CHLORIDE 10 MEQ TABLET PO SCH (09:07)
[2016-09-23] MEDS: TOPIRAMATE 100 MG TABLET PO SCH (09:07)
[2016-09-23] MEDS: MORPHINE ER 15 MG TABLET PO SCH (09:07)
[2016-09-23] MEDS: DORZOLAMIDE 2% OPH SOLN 10 ML BOTTLE BOTH EYES SCH (09:08)
[2016-09-23] MEDS: ENOXAPARIN 40 MG/0.4 ML SYRINGE SUBCUT SCH (09:08)
--- NOTE | 2016-09-23 10:53 | Discharge Summary ---
Hospital Course - Hospital Course Hospital Course: Patient is a 61-year-old male who was admitted with acute pneumonia and exacerbation of COPD. Patient has history of coronary artery disease, status post CABG, hypertension, depression, chronic back pain. He was running high- grade fevers at home. Patient was started on broad-spectrum antibiotics and has gradually improved over last several days. He continues to cough up phlegm. He is feeling better overall. His repeat chest x-ray showed persistence of pneumonia in the right upper lung. He has had previous workup including bronchoscopies done in the past for abnormal chest x-ray and CT scan. He was hypoxic and will require oxygen at home. He is a former smoker. He will be discharged to home on antibiotics for another 10 days. I have discussed with him and his that abnormal chest x-ray. Will set up a CT scan of the chest with and without contrast in about 3-4 weeks. I will see him after the CT scan. Diagnosis - Discharge Diagnosis (1) Right upper lobe pneumonia Status: Acute (2) Acute exacerbation of chronic obstructive pulmonary disease (COPD) Status: Acute (3) Atherosclerotic cardiovascular disease Status: Acute (4) Chronic pain syndrome Status: Acute (5) Depression Status: Acute (6) Essential hypertension Status: Acute Discharge Plan - Discharge Data Disposition: Disch To Home/Self Care Condition at Discharge: Stable Discharge Diet: advance to your usual diet Activity: resume usual activities as tolerated Hygiene: no restrictions - Discharge Medications New Cefuroxime Tab [Ceftin] 500 mg PO BID #20 tablet Continue Zolpidem Tartrate [Ambien] 10 mg PO BEDTIME PRN PRN Reason: Sleep Carvedilol [Coreg] 6.25 mg PO BID W/MEALS Pregabalin [Lyrica] 150 mg PO BID Aspirin [Ecotrin] 81 mg PO BEDTIME Oxycodone HCl/Acetaminophen [Percocet 10-325 mg Tablet] 1 each PO QID PRN PRN Reason: Pain Nitroglycerin Sl Tab [Nitrostat] 0.4 mg SL Q5M PRN PRN Reason: Chest Pain Albuterol Sulfate [Proair HFA] 2 puff INH Q6H PRN PRN Reason: Shortness Of Breath/Wheezing Tiotropium Lyman [Spiriva Respimat] 2 puffs INH DAILY Potassium Chloride Cap/Tab [K Dur] 10 meq PO DAILY Meloxicam [Mobic] 7.5 mg PO DAILY Carbidopa/Levodopa 25-100 [Sinemet 25-100] 1 tablet PO TID Citalopram [CeleXA] 40 mg PO BEDTIME Amitriptyline HCl 25 mg PO BEDTIME Alendronate [Fosamax] 70 mg PO SA Morphine Sulfate [Morphine Sulfate ER] 15 mg PO BID cycloSPORINE OPH EMUL [Restasis] 1 drop BOTH EYES Q12HR Latanoprost [Latanoprost 0.005 % Oph Soln] 1 drop BOTH EYES BEDTIME Dorzolamide HCl [Dorzolamide 2% Oph Soln] 1 drop BOTH EYES BID Cyclobenzaprine [Flexeril] 10 mg PO TID tiZANidine [Zanaflex] 4 mg PO TID Topiramate 100 mg PO BID Folic Acid Tab 1 mg PO BEDTIME Pravastatin [Pravachol] 40 mg PO DAILY - Follow Up or Referral - Forms/Instructions Additional Discharge Instructions: Appointment in office in 3-[address] up a [address] scan of the chest with and without contrast in 3 weeks. Call in his antibiotics. He will go home on 2 L oxygen Exam - Constitutional Vitals: Period Temp Pulse Resp BP Sys/Yanez Pulse Ox Last 24 Hr 96.9 F-98.4 F 60-81 16-22 117-161/61-89 91-99 Exam: Examination: GENERAL: NAD. NECK: Neck is supple. CVS: Regular rate and rhythm. S1 and S2 are normal. RESPIRATORY: Better air entry. Few scattered rhonchi ABDOMEN: Soft and nontender. EXT: No edema. Peripheral pulses are present. SKIN: Warm and dry. Discharge Results Procedures and tests throughout hospitalization: Pending Orders 09/19/16 23:31 Blood Culture Stat Labs on day of discharge: Labs from last 24 hours 09/23/16 05:32 Sodium 144 Potassium 3.8 Chloride 107 Carbon Dioxide 29 Anion Gap 11.8 BUN 9 Creatinine 0.60 L GFR Calculation 138 BUN/Creatinine Ratio 15.00 Glucose 89 Calculated Osmolality 283.8 Calcium 8.6 Preliminary micro results at discharge 09/19/16 23:31 Blood Culture - Preliminary Blood No growth at 3 days 09/19/16 23:31 Blood Culture - Preliminary Blood No growth at 3 days DS: Provider Date of admission: 09/19/16 23:58 Primary care physician: Dheeraj Paul MD Attending physician on admission: Dheeraj Paul MD Consults: 09/19/16 23:58 Consult to Case Mgmt/Social Srvs [CONS] Routine Reason for Case Mgmt/Social Srvs: Discharge Planning 09/20/16 03:10 Consult to Pastoral Services [CONS] Routine Comment: Pastoral Screen: Request Business Operations Specialist Visit Pastoral Screen Source of Request: Patient 09/22/16 10:19 Consult to Case Mgmt/Social Srvs [CONS] Routine Reason for Case Mgmt/Social Srvs: Other Consult Comment: Home oxygen at 2-3 L per Nasal Cannula Discharging clinician: Dheeraj Paul MD
--- NOTE | 2016-09-27 14:35 | Physician Query Form ---
CLICK EDIT DOCUMENT TO SELECT QUERY ANSWER --> OK --> SIGN Maisha Palafox RN, CCDS Certified Clinical Bailiff W) [phone] (f) [phone] [email or web address] PROVIDERS: Make your selection(s) from the choices in EACH section by typing an "x" and enter comments in the comment section. Please use your independent medical judgment in providing your response. This request does not imply that any particular answer is desired or expected. CLINICAL INDICATORS: (Providers should not edit this section) The medical record indicates that the patient was admitted with COPD exacerbation, creatinine 2.20# on the that dropped to 0.80# on the 14, GFR of 40# on the that increased to 123# on the 14 and the patient was placed on IVF's. Clarify which of the following most accurately represents the patient's renal status: ( ) Acute kidney injury (non-traumatic) ( ) Acute renal failure ( ) Acute renal failure with underlying Chronic Kidney Disease (CKD) - please provide stage below ( ) Acute renal failure with pathological renal lesion ( ) Acute renal failure with necrosis ( ) tubular ( ) medullary ( ) cortical ( ) CKD - please provide stage below ( ) End Stage Renal Disease ( ) Acute interstitial nephritis ( ) Hepatorenal syndrome ( x) Other, please specify: Acute kidney injury secondary to dehydration ( ) Clinically unable to determine Chronic Kidney Disease Stages Source: [employer] ( ) Stage I (eGFR > or = 90) ( ) Stage II (eGFR 60 - 89) ( ) Stage III (eGFR 30 - 59) ( ) Stage IV (eGFR 15 - 29) ( ) Stage V (eGFR < 15 or dialysis) COMMENTS: PLEASE ALSO DOCUMENT RESPONSE IN PROGRESS NOTES AND/OR DISCHARGE SUMMARY Use of terms such as suspected, likely, or probable (associated with a specific diagnosis that is being evaluated, monitored, or treated as if it exists) are acceptable and can be restated in the discharge summary if not ruled out. MTDD
== END 2016-09-23 12:05 | disposition home or self-care (01) | DRG 190 ==
LOC: N.ED 22:11 → N.EDINP 23:58 → N.5E 09-20 00:58
PROVIDERS: ADMIT Internal Medicine; ATTEND Internal Medicine